=== PATIENT | female | born 1970 | race Caucasian/White ===

== ENCOUNTER 2016-08-02 10:11 | Emergency (ER) | payer OTHER ==
[2016-08-02 10:31] VITALS: BP 162/109; PULSE 66; RESP 16; TEMP 98.6; O2SAT 98
[2016-08-02] MEDS ORDERED: AZITHROMYCIN 250 MG TAB PO ONE (10:34)
--- NOTE | 2016-08-02 10:37 | UCPHY ---
H & P Patient Type: New Chief Complaint Nursing Narrative: sinus pain and fatigue, ear pressure for few days with cold s/s for the preceding two weeks. Denies fever. using OTC cold meds. Time Seen by Provider: 08/02/16 10:23 HPI/ROS: CHIEF COMPLAINT: Sinus congestion HISTORY OF PRESENT ILLNESS: The patient is a 45-year-old healthy female who comes to the Urgent Care complaining of sinus congestion for the last 11 days. She has been using Sudafed trying to rest and hydrate as much as possible. Symptoms have not improved. She has a pressure behind her left eye. No headache. No neck pain. No sore throat. Mild dry cough. No shortness of breath. Dental pain. REVIEW OF SYSTEMS: Constitutional: denies: chills, fever, recent illness, recent injury EENTM: See HPI Respiratory: denies: cough, shortness of breath Cardiac: denies: chest pain, irregular heart rate, lightheadedness, palpitations Gastrointestinal/Abdominal: denies: abdominal pain, diarrhea, nausea, vomiting, blood streaked stools Genitourinary: denies: dysuria, frequency, hematuria, pain Musculoskeletal: denies: joint pain, muscle pain Skin: denies: lesions, rash, jaundice, bruising Neurological: denies: headache, numbness, paresthesia, tingling, dizziness, weakness Hematologic/Lymphatic: denies: blood clots, easy bleeding, easy bruising Immunologic/allergic: denies: HIV/AIDS, transplant EXAM: GENERAL: Well-appearing, well-nourished and in no acute distress. HEAD: Atraumatic, normocephalic. EYES: Pupils equal round and reactive to light, extraocular movements intact, sclera anicteric, conjunctiva are normal. ENT: CC sinus congestion and tenderness, left tympanic membrane with effusion , oropharynx clear without exudates. Moist mucous membranes. NECK: Normal range of motion, supple without lymphadenopathy or JVD. LUNGS: Breath sounds clear to auscultation bilaterally and equal. No wheezes rales or rhonchi. HEART: Regular rate and rhythm without murmurs, rubs or gallops. ABDOMEN: Soft, nontender, normoactive bowel sounds. No guarding, no rebound. No masses appreciated. BACK: No CVA tenderness, no spinal tenderness, step-offs or deformities EXTREMITIES: Normal range of motion, no pitting or edema. No clubbing or cyanosis. NEUROLOGICAL: Cranial nerves II through XII grossly intact. Normal speech, normal gait. 5/5 strength, normal movement in all extremities, normal sensation PSYCH: Normal mood, normal affect. SKIN: Warm, dry, normal turgor, no visible rashes or lesions. Source: Patient Exam Limitations: No limitations - Personal History LMP (Females 10-55): Unknown - Medical/Surgical History Hx Asthma: No Hx Chronic Respiratory Disease: No Hx Diabetes: No Hx Cardiac Disease: No Hx Renal Disease: No Hx Cirrhosis: No Other PMH: PCP Demarco La. Hx : Cholecystectomy, Csec x2. FLU vacc UTD . Tetanus UTD - Family History Significant Family History: No pertinent family hx - Social History Smoking Status: Never smoked Alcohol Use: None Drug Use: None Constitutional: Initial Vital Signs Temperature (C) 37 C 08/02/16 10:28 Heart Rate 66 08/02/16 10:28 Respiratory Rate 16 08/02/16 10:28 Blood Pressure 162/109 H 08/02/16 10:28 O2 Sat (%) 98 08/02/16 10:28 O2 Delivery Mode Room Air Allergies/Adverse Reactions: No Known Allergies Allergy (Unverified 08/02/16 10:28) Home Medications: Medication Instructions Recorded AZITHROMYCIN [Z-PACK] 250 mg PO DAILY #4 tab 08/02/16 Lutera-28 Tablet 08/02/16 Medical Decision Making ED Course/Re-evaluation: Patient has sinusitis on exam. I will start her on azithromycin. She is grateful and happy with this plan. She declines further workup or testing at this time. Differential Diagnosis: Partial list of the Differential diagnosis considered include but were not limited to; sinusitis, upper respiratory tract infection, otitis media, pharyngitis, dental infection and although unlikely based on the history and physical exam, I also considered acute coronary disease, pneumonia. I discussed these differential diagnoses and the plan with the patient as well as the usual and expected course. The patient understands that the diagnosis is provisional and that in medicine we are not always correct and that further workup is often warranted. Usual and customary warnings were given. All of the patient's questions were answered. The patient was instructed to return to the emergency department should the symptoms at all worsen or return, otherwise to followup with the physician as we discussed. - Data Points Medications Given: Discontinued Medications Azithromycin (Zithromax) 500 mg PO EDNOW ONE PRN Reason: Protocol Stop: 08/02/16 10:35 Last Admin: 08/02/16 10:45 Dose: 500 mg Departure - Departure Disposition: Home, Routine, Self-Care Clinical Impression: Sinusitis Qualifiers: Sinusitis location: maxillary Chronicity: acute Recurrence: non-recurrent Qualified Code(s): J01.00 - Acute maxillary sinusitis, unspecified Condition: Fair Instructions: Sinusitis (ED) Referrals: Tiesha La MD [Primary Care Provider] - As per Instructions Prescriptions: AZITHROMYCIN [Z-PACK] 250 mg PO DAILY #4 tab - PQRS PQRS Measurement: Not applicable
== END 2016-08-02 10:45 | disposition home or self-care (01) ==
LOC: CED 10:11
DX: J01.00 Acute maxillary sinusitis, unspecified (principal)
CPT/HCPCS: 99204-PO; G0463-PO

== ENCOUNTER → 2017-02-22 | Outpatient (CLI) | payer OTHER | LOC: FIMAGING 14:19 | PROVIDERS: ATTEND Family Medicine | DX: Z12.31 Encounter for screening mammogram for malignant neoplasm of breast (principal) | CPT/HCPCS: G0202 ==